=== PATIENT | male | born 2000 | race Two or more races ===

== ENCOUNTER 2021-09-30 16:39 | Emergency (ER) | payer OTHER ==
[~2021-09-30] VITALS: Ht 167.6 cm; Wt 59.0 kg
== END 2021-09-30 18:24 | disposition home or self-care (01) ==
LOC: ER 16:39 → EMR PED 16:47 → ER 16:47 → EMR PED 18:24
DX: L30.9 Dermatitis, unspecified (principal); L57.8 Other skin changes due to chronic exposure to nonionizing radiation; K59.00 Constipation, unspecified